=== PATIENT | male | born 1965 | race Caucasian/White ===

== ENCOUNTER 2022-11-18 08:31 | Outpatient (OUT) | payer OTHER, SELFPAY ==
[2022-11-18 11:34] LABS: Alanine Aminotransferase 26 U/L (16-63); Aspartate Amino Transferase 19 U/L (15-37); Bilirubin Total 0.7 mg/dL (0.2-1.0); Total Protein 7.5 g/dL (6.4-8.2)
== END 2022-11-18 08:32 | disposition home or self-care (01) ==
PROVIDERS: PCP Family Medicine; Visit Provider Family Medicine
DX: C61 Malignant neoplasm of prostate (principal); E78.5 Hyperlipidemia, unspecified
CPT/HCPCS: 36415; 82042; 82247; 84155; 84450; 84460

== ENCOUNTER 2023-01-23 21:18 | Emergency (ER) | payer OTHER, SELFPAY ==
[2023-01-23 21:25] VITALS: BP 131/68; PULSE 65; RESP 16; TEMP 36.8; O2SAT 98; BMI 24.3
--- NOTE | 2023-01-23 21:31 | XR_ITS ---
The [address] [address] Patient Name: VISHNU MAYFIELD MRN: [id number] date: 1965 Sex: M Assigned Patient Location: ER Current Patient Location: ER Accession/Order Number: [id number] Exam Date: 01/23/2023 21:37 Report Date: 01/23/2023 22:01 At the request of: SORAYA CASTANEDA Procedure: XR hand LT min 3V EXAM: XR hand LT min 3V HISTORY: injury COMPARISON: None. TECHNIQUE: 3 views of the left hand FINDINGS: No obvious acute fracture is seen. Joint alignment is normal. Joint spaces are preserved. Soft tissues appear unremarkable. XR/XR hand LT min 3V IMPRESSION: No obvious acute fracture or malalignment. Electronically authenticated by: LUIZ GREGG Date: 01/23/2023 22:01
--- NOTE | 2023-01-23 21:31 | ED_ITS ---
HPI - Extremity Injury (Upper) General Chief Complaint: Extremity Injury, Upper Stated Complaint: FINGER INJURY Time Seen by Provider: 01/23/23 21:27 Source: patient Mode of arrival: walk-in Limitations: no limitations History of Present Illness HPI narrative: walking up his stairs and his hand was struck by a door. Struck the left hand. Injury left 2nd MCP and DIP joint of the middle finger. Has flexion deformity of the left middle finger which is why he came in. only has mild pain. Denies other injury Related Data Home Medications Medication Instructions Recorded Confirmed tamsulosin 0.4 mg capsule 0.4 mg PO Q24H 01/23/23 01/23/23 Allergies Allergy/AdvReac Type Severity Reaction Status Date / Time codeine AdvReac Unknown Verified 01/23/23 21:31 Review of Systems ROS Status of ROS 10 or more systems reviewed and unremarkable except as noted in history and below [facility] Social History Smoking status: Never smoker Exam Constitutional Vital Signs, click to edit/add: Last Vital Signs Temp 98.3 F 01/23/23 21:25 Pulse 65 01/23/23 21:25 Resp 16 01/23/23 21:25 BP 131/68 01/23/23 21:25 Pulse Ox 98 01/23/23 21:25 O2 Del Method Room Air 01/23/23 21:25 Common normals: no apparent distress, average body habitus, oriented x3, no limitations and healthy appearing [facility] Common normals: normocephalic and head/scalp atraumatic Respiratory Common normals: normal respiratory effort, no retractions and no use of ac cessory muscles Back & Pelvis Common normals: thoracic and lumbar spine normal to inspection Extremity Other: minor contusion left dorsal 2nd MCP. no swelling flexion deformity left middle finger at DIP. focal abrasion at this site but no lac Neuro Common normals: oriented x3, CN's II-XII intact bilaterally, moves all extremities, no focal motor deficits and no sensory deficits noted Psych Appearance: grossly normal Course Vital Signs Vital signs: Vital Signs Temperature 98.3 F 01/23/23 21:25 Pulse Rate 65 01/23/23 21:25 Respiratory Rate 16 01/23/23 21:25 Blood Pressure 131/68 01/23/23 21:25 Pulse Oximetry 98 01/23/23 21:25 Oxygen Delivery Method Room Air 01/23/23 21:25 Temperature 98.3 F 01/23/23 21:25 Pulse Rate 65 01/23/23 21:25 Respiratory Rate 16 01/23/23 21:25 Blood Pressure 131/68 01/23/23 21:25 Pulse Oximetry 98 01/23/23 21:25 Oxygen Delivery Method Room Air 01/23/23 21:25 MDM - Extremity Injury (Upper) MDM Narrative Medical decision making narrative: patient presents with acute injury left middle finger with resulting flexion deformity at the DIP joint. xray without fracture. Finger splinted in extension and patient discharged home to follow up with ortho Discharge Plan Discharge Chief Complaint: Extremity Injury, Upper Clinical Impression: Finger contusion Patient Disposition: Home, Self-Care Prescriptions / Home Meds: No Action tamsulosin 0.4 mg capsule 0.4 mg PO Q24H Instructions: Contusion in Adults (ED) Additional Instructions: keep finger in splint until seen by your orthopedist next week Stand Alone Forms: Portal Instructions Referrals: SHIELA NAVARRO [Primary Care Provider] - 1 week
== END 2023-01-23 22:52 | disposition home or self-care (01) ==
PROVIDERS: Emergency Provider Internal Medicine; PCP Family Medicine
DX: S60.032A Contusion of left middle finger without damage to nail, initial encounter (principal); W22.8XXA Striking against or struck by other objects, initial encounter
CPT/HCPCS: 29130; 73130; 99283